=== PATIENT | male | born 1965 | race Two or more races ===

== ENCOUNTER 2023-05-13 12:53 | Inpatient (IN) | payer BC, OTHER ==
[~2023-05-13] VITALS: Ht 185.4 cm; Wt 101.5 kg
[2023-05-13] VITALS (18 sets, daily range): BP systolic 125–179; BP diastolic 59–116; PULSE 102–144; RESP 15–39; TEMP 96.7–96.9; O2SAT 97–100
[2023-05-13] MEDS ORDERED: DEXTROSE (50%) 50ML SYRG IV PRN ×2 (17:15→21:00)
[2023-05-13] MEDS ORDERED: INSULIN DRIP 100 UNIT/100ML 100 ML IV SCH (17:15)
[2023-05-13] MEDS ORDERED: ONDANSETRON HCL 4 MG/2 ML VIAL IV PRN (17:15)
[2023-05-13] MEDS ORDERED: NITROGLYCERIN 0.4 MG SL TAB SL PRN (17:15)
[2023-05-13] MEDS ORDERED: LABETALOL HCL 5 MG/ML 4ML SYRINGE IV PRN (17:15)
[2023-05-13] MEDS ORDERED: MORPHINE SULFATE INJ 2 MG/ml SYRG IV PRN ×2 (17:15)
[2023-05-13] MEDS ORDERED: ACETAMINOPHEN 325 MG TAB PO PRN (17:15)
[2023-05-13] MEDS ORDERED: cefTRIAXone 1GM/50ML D5W 50 ML IV ONE (18:30)
[2023-05-13 18:37] LABS: Urine Bacteria NONE SEEN /hpf (None Seen); Urine Blood 2+ /uL (Negative); Urine Clarity Clear (Clear); Urine Color Colorless (Yellow); Urine Protein, UAD 1+ (Negative); Urine Specific Gravity 1.022 (1.001-1.035); Urine Urobilinogen Normal (Negative); Urine WBC <1 /hpf (0 - 3)
[2023-05-13 18:43] LABS: Eosinophils # (auto) 0 10 ^3/uL (0-0.8); Hemoglobin 15.4 g/dL (13.5-17.5)
[2023-05-13 18:45] LABS: Basophils # (auto) 0 10 ^3/uL (0-0.2); Basophils % (auto) 0.1 % (0.0-2.0); Hematocrit 48.9 % (41.0-53.0); Lymphocytes # (auto) 1.2 10 ^3/uL (0.4-5.4); Lymphocytes % (auto) 5.4 % (10.0-50.0); Mean Corpuscular Hemoglobin 31.6 pg (28.0-32.0); Mean Corpuscular Hgb Conc. 31.5 g/dL (32.0-36.0); Mean Corpuscular Volume 100.5 fL (80.0-100.0); Monocytes # (auto) 2.9 10 ^3/uL (0-1.3); Monocytes % (auto) 12.6 % (0.0-12.0); Neutrophils # (auto) 18.6 10 ^3/uL (1.6-8.6); Neutrophils % (auto) 81.9 % (37.0-80.0); Red Blood Cells 4.87 10^6/uL (4.5-5.90); Red Cell Distribution Width 13.8 % (11.8-14.3); White Blood Cell 22.8 10^3/uL (4.4-10.8)
[2023-05-13] MEDS: SODIUM BICARBONATE 50ML VIAL 150 ML in SOD CHL 0.45% 1,000 ML IV SCH (18:45)
[2023-05-13] MEDS: ACCU-CHEK COMFORT CURVE STRIP VI SCH ×6 (18:49→23:59)
[2023-05-13 18:58] LABS: Chloride 107 mmol/L (98-107); Potassium 5.2 mmol/L (3.5-5.1); Sodium 137 mmol/L (136-145)
[2023-05-13 18:59] LABS: Anion Gap 20.00001 (5-15); Calcium 10.1 mg/dL (8.7-10.4)
[2023-05-13] MEDS ORDERED: SODIUM BICARBONATE 8.4 % INJ 50ML VIAL IV ONE (19:00)
[2023-05-13 19:04] LABS: BUN/Creatinine Ratio 22.3 (10.0-20.0); Blood Urea Nitrogen 35 mg/dL (9-23)
[2023-05-13 19:05] LABS: Magnesium 2.5 mg/dL (1.6-2.6)
[2023-05-13 19:15] LABS: Carbon Dioxide < 10 mmol/L (20-30); Glucose 566 mg/dL (74-106)
[2023-05-13] MEDS ORDERED: AMIODARONE HCL 200 MG TAB PO ONE (19:30)
[2023-05-13] MEDS ORDERED: PANTOPRAZOLE 40 MG/10 ML VIAL INJ IV ONE (19:30)
[2023-05-13] MEDS ORDERED: AMIODARONE 450mg/250ml AE 250 ML IV SCH (20:30)
[2023-05-13] MEDS: INSULIN DRIP 100 UNIT/100ML 100 ML IV SCH ×3 (20:54→23:55)
[2023-05-13] MEDS: PANTOPRAZOLE 40 MG/10 ML VIAL INJ IV SCH (21:19)
[2023-05-13] MEDS: SODIUM CHLOR 0.9% PF (SALINE LOCK) 10ML VIAL/SYR IV SCH (21:19)
[2023-05-13 22:36] LABS: Chloride 115 mmol/L (98-107); Potassium 4.4 mmol/L (3.5-5.1); Sodium 142 mmol/L (136-145)
[2023-05-13 22:38] LABS: Calcium 9.6 mg/dL (8.7-10.4)
[2023-05-13 22:43] LABS: BUN/Creatinine Ratio 20.1 (10.0-20.0); Blood Urea Nitrogen 27 mg/dL (9-23); Magnesium 2.3 mg/dL (1.6-2.6)
[2023-05-13 22:45] LABS: Phosphorus 1.3 mg/dL (2.4-5.1)
[2023-05-13 22:53] LABS: Base Excess -16.8 mmol/L (-2.0-2.0)
[2023-05-13 23:00] LABS: Glucose 390 mg/dL (74-106)
[2023-05-13] MEDS: SODIUM CHLORIDE 0.9% 1,000 ML IV SCH (23:00)
[2023-05-13 23:01] LABS: Carbon Dioxide < 10 mmol/L (20-30)
[2023-05-14] VITALS (47 sets, daily range): BP systolic 90–143; BP diastolic 50–82; PULSE 88–158; RESP 15–25; TEMP 98.1–98.7; O2SAT 93–100
[2023-05-14] MEDS: ACCU-CHEK COMFORT CURVE STRIP VI SCH ×12 (01:45→22:39)
[2023-05-14] MEDS ORDERED: AMIODARONE 450mg/250ml AE 250 ML IV SCH ×3 (02:30→14:45)
[2023-05-14 02:52] LABS: Alanine Aminotransferase 11 U/L (7-40); Albumin 4.1 g/dL (3.2-4.8); Alkaline Phosphatase 83 U/L (46-116); Anion Gap 15 (5-15); Aspartate Aminotransferase 17 U/L (13-40); BUN/Creatinine Ratio 28.8 (10.0-20.0); Blood Urea Nitrogen 34 mg/dL (9-23); Calcium 9.4 mg/dL (8.5-10.1); Carbon Dioxide 14 mmol/L (20-30); Chloride 118 mmol/L (98-107); Potassium 3.6 mmol/L (3.5-5.1)
[2023-05-14 02:53] LABS: Bilirubin, Total 0.3 mg/dL (0.2-1.0); Phosphorus 0.7 mg/dL (2.4-5.1); Total Protein 6.5 g/dL (5.7-8.2)
[2023-05-14 03:10] LABS: Glucose 231 mg/dL (74-106); Sodium 147 mmol/L (136-145)
[2023-05-14 03:56] LABS: Anion Gap 14 (5-15); Carbon Dioxide 15 mmol/L (20-30); Chloride 118 mmol/L (98-107); Potassium 3.5 mmol/L (3.5-5.1); Sodium 147 mmol/L (136-145)
[2023-05-14 03:57] LABS: Calcium 9.3 mg/dL (8.5-10.1)
[2023-05-14 04:00] LABS: Basophils # (auto) 0.1 10 ^3/uL (0-0.2); Basophils % (auto) 0.4 % (0.0-2.0); Eosinophils # (auto) 0 10 ^3/uL (0-0.8); Hematocrit 41.4 % (41.0-53.0); Hemoglobin 13.5 g/dL (13.5-17.5); Lymphocytes # (auto) 0.7 10 ^3/uL (0.4-5.4); Lymphocytes % (auto) 4.2 % (10.0-50.0); Mean Corpuscular Hemoglobin 30.7 pg (28.0-32.0); Mean Corpuscular Hgb Conc. 32.5 g/dL (32.0-36.0); Mean Corpuscular Volume 94.4 fL (80.0-100.0); Monocytes # (auto) 1.8 10 ^3/uL (0-1.3); Monocytes % (auto) 11.1 % (0.0-12.0); Neutrophils # (auto) 13.5 10 ^3/uL (1.6-8.6); Neutrophils % (auto) 84.3 % (37.0-80.0); Red Blood Cells 4.39 10^6/uL (4.5-5.90); Red Cell Distribution Width 13.1 % (11.8-14.3)
[2023-05-14 04:02] LABS: BUN/Creatinine Ratio 28.8 (10.0-20.0); Blood Urea Nitrogen 32 mg/dL (9-23); Glucose 208 mg/dL (74-106)
[2023-05-14 04:04] LABS: Phosphorus 0.7 mg/dL (2.4-5.1)
[2023-05-14] MEDS: INSULIN DRIP 100 UNIT/100ML 100 ML IV SCH ×2 (04:36→09:22)
[2023-05-14 04:43] LABS: Magnesium 2.1 mg/dL (1.6-2.6)
[2023-05-14] MEDS: SODIUM CHLORIDE 0.9% 1,000 ML IV SCH ×3 (05:56→16:40)
[2023-05-14] MEDS: SODIUM CHLOR 0.9% PF (SALINE LOCK) 10ML VIAL/SYR IV SCH ×4 (05:57→21:50)
[2023-05-14] MEDS: SODIUM BICARBONATE 50ML VIAL 150 ML in SOD CHL 0.45% 1,000 ML IV SCH ×2 (06:01→16:42)
[2023-05-14] MEDS ORDERED: SODIUM BICARBONATE 8.4% INJ 50ML SYRINGE ONE (06:12)
[2023-05-14] MEDS ORDERED: AMIODARONE HCL (50 MG/ ML) 3 ML VIAL IV ONE (06:12)
[2023-05-14] MEDS ORDERED: AMIODARONE BOLUS KIT 100 ML IV ONE ×2 (06:15→11:00)
[2023-05-14 07:59] LABS: Base Excess -9.7 mmol/L (-2.0-2.0)
[2023-05-14] MEDS: cefTRIAXone 1GM/50ML D5W 50 ML IV SCH (08:23)
[2023-05-14] MEDS: PANTOPRAZOLE 40 MG/10 ML VIAL INJ IV SCH ×2 (08:23→21:50)
[2023-05-14] MEDS: dilTIAZem 125mg/125ml BAG KIT 125 ML IV SCH ×2 (09:23→19:36)
[2023-05-14] MEDS ORDERED: PANTOPRAZOLE 40 MG/10 ML VIAL INJ IV SCH (10:00)
[2023-05-14] MEDS ORDERED: AMIODARONE HCL 200 MG TAB PO SCH (10:00)
[2023-05-14 10:53] LABS: INR 0.98 (0.9-1.15); Partial Thromboplastin Time 28.5 SEC (24.5-34.5); Prothrombin Time 10.3 sec (9.3-11.8)
[2023-05-14] MEDS: MAGNESIUM SULFATE 1GM/100ML 100 ML IV SCH ×4 (10:57→13:35)
[2023-05-14 10:58] LABS: Albumin 3.8 g/dL (3.2-4.8); Alkaline Phosphatase 81 U/L (46-116); Anion Gap 11 (5-15); Aspartate Aminotransferase 17 U/L (13-40); BUN/Creatinine Ratio 26.7 (10.0-20.0); Bilirubin, Total 0.3 mg/dL (0.2-1.0); Blood Urea Nitrogen 27 mg/dL (9-23); Calcium 8.9 mg/dL (8.7-10.4); Carbon Dioxide 17 mmol/L (20-30); Chloride 116 mmol/L (98-107); Glucose 227 mg/dL (74-106); Potassium 3.2 mmol/L (3.5-5.1); Sodium 144 mmol/L (136-145); Total Protein 5.9 g/dL (5.7-8.2)
[2023-05-14 11:01] LABS: Alanine Aminotransferase 9 U/L (7-40)
[2023-05-14] MEDS ORDERED: NEUTRA-PHOS TABLET PO ONE (11:15)
[2023-05-14] MEDS ORDERED: POTASSIUM EFFERVESENT TAB 25 MEQ PO ONE (11:15)
[2023-05-14] MEDS ORDERED: LIDOCAINE 1% (LOCAL ANESTH.) PF 5ml SDV ID ONE (16:45)
[2023-05-14 16:54] LABS: Base Excess -3.5 mmol/L (-2.0-2.0)
[2023-05-14 17:16] LABS: Chloride 112 mmol/L (98-107); Potassium 3.2 mmol/L (3.5-5.1); Sodium 144 mmol/L (136-145)
[2023-05-14 17:17] LABS: Anion Gap 9 (5-15); Calcium 8.4 mg/dL (8.7-10.4); Carbon Dioxide 23 mmol/L (20-30)
[2023-05-14 17:22] LABS: BUN/Creatinine Ratio 35.3 (10.0-20.0); Blood Urea Nitrogen 30 mg/dL (9-23); Glucose 191 mg/dL (74-106)
[2023-05-14] MEDS ORDERED: DEXTROSE (50%) 50ML SYRG IV PRN ×2 (18:00→22:30)
[2023-05-14] MEDS ORDERED: POTASSIUM EFFERVESENT TAB 25 MEQ GT ONE (18:00)
[2023-05-14] MEDS ORDERED: fentaNYL CITRATE 100 MCG/2 ML VL IV ONE (19:45)
[2023-05-14] MEDS ORDERED: ENOXAPARIN SOD 100 MG/1 ML SYRINGE SC ONE ×2 (19:45→19:49)
[2023-05-14] MEDS ORDERED: MIDAZOLAM HCL 2MG/2ML 2ml VIAL (1mg/ml) IM ONE (19:45)
[2023-05-14] MEDS ORDERED: fentaNYL CITRATE 100 MCG/2 ML VL ONE (19:48)
[2023-05-14] MEDS ORDERED: MIDAZOLAM HCL 2MG/2ML 2ml VIAL (1mg/ml) ONE (19:49)
[2023-05-14] MEDS ORDERED: NALOXONE HCL 0.4 MG/ML VIAL ONE (20:50)
[2023-05-14] MEDS: AMIODARONE HCL 200 MG TAB PO SCH (21:51)
[2023-05-14] MEDS ORDERED: ACCU-CHEK COMFORT CURVE STRIP VI SCH (22:00)
[2023-05-14] MEDS ORDERED: InsuLIN REG 1unit/0.01ml Soln (100units/ml) SC SCH (22:00)
[2023-05-14] MEDS ORDERED: LABETALOL HCL 5 MG/ML 4ML SYRINGE IV PRN (22:30)
[2023-05-14] MEDS: InsuLIN REG 1unit/0.01ml Soln (100units/ml) SC SCH (22:39)
[2023-05-15] VITALS (22 sets, daily range): BP systolic 102–157; BP diastolic 55–99; PULSE 77–152; RESP 14–26; TEMP 97.5–98.9; O2SAT 92–100
[2023-05-15] MEDS: LABETALOL HCL 5 MG/ML 4ML SYRINGE IV PRN ×2 (01:26→06:01)
[2023-05-15] MEDS: ACCU-CHEK COMFORT CURVE STRIP VI SCH ×5 (04:00→20:00)
[2023-05-15] MEDS: SODIUM CHLORIDE 0.9% 1,000 ML IV SCH ×3 (04:54→17:00)
[2023-05-15] MEDS: InsuLIN REG 1unit/0.01ml Soln (100units/ml) SC SCH ×5 (05:04→22:58)
[2023-05-15] MEDS: dilTIAZem 125mg/125ml BAG KIT 125 ML IV SCH (05:07)
[2023-05-15] MEDS: SODIUM CHLOR 0.9% PF (SALINE LOCK) 10ML VIAL/SYR IV SCH ×5 (06:00→22:00)
[2023-05-15 07:01] LABS: Basophils # (auto) 0 10 ^3/uL (0-0.2); Basophils % (auto) 0.2 % (0.0-2.0); Eosinophils # (auto) 0 10 ^3/uL (0-0.8); Hematocrit 36.2 % (41.0-53.0); Lymphocytes # (auto) 0.7 10 ^3/uL (0.4-5.4); Lymphocytes % (auto) 6.1 % (10.0-50.0); Mean Corpuscular Hgb Conc. 33.2 g/dL (32.0-36.0); Mean Corpuscular Volume 93.3 fL (80.0-100.0); Monocytes # (auto) 0.9 10 ^3/uL (0-1.3); Monocytes % (auto) 8.7 % (0.0-12.0); Neutrophils # (auto) 9.2 10 ^3/uL (1.6-8.6); Red Blood Cells 3.88 10^6/uL (4.5-5.90); Red Cell Distribution Width 13.5 % (11.8-14.3); White Blood Cell 10.8 10^3/uL (4.4-10.8)
[2023-05-15 07:14] LABS: Alanine Aminotransferase 15 U/L (7-40); Albumin 3.3 g/dL (3.2-4.8); Alkaline Phosphatase 129 U/L (46-116); Anion Gap 12 (5-15); Aspartate Aminotransferase 15 U/L (13-40); BUN/Creatinine Ratio 33.7 (10.0-20.0); Blood Urea Nitrogen 28 mg/dL (9-23); Calcium 8.1 mg/dL (8.5-10.1); Carbon Dioxide 18 mmol/L (20-30); Chloride 112 mmol/L (98-107); Potassium 3.8 mmol/L (3.5-5.1); Sodium 142 mmol/L (136-145)
[2023-05-15 07:15] LABS: Bilirubin, Total 0.4 mg/dL (0.2-1.0); Total Protein 5.2 g/dL (5.7-8.2)
[2023-05-15 07:17] LABS: Glucose 323 mg/dL (74-106)
[2023-05-15] MEDS: PANTOPRAZOLE 40 MG/10 ML VIAL INJ IV SCH ×2 (08:27→22:47)
[2023-05-15] MEDS: cefTRIAXone 1GM/50ML D5W 50 ML IV SCH (08:27)
[2023-05-15] MEDS: AMIODARONE HCL 200 MG TAB PO SCH ×2 (08:27→22:49)
[2023-05-15] MEDS: APIXABAN 5 MG TAB PO SCH ×2 (08:31→22:49)
[2023-05-15 08:45] LABS: Magnesium 2.2 mg/dL (1.6-2.6)
[2023-05-15] MEDS ORDERED: dilTIAZem 120MG ER CAP PO SCH (10:00)
[2023-05-15] MEDS ORDERED: AMIODARONE HCL 200 MG TAB PO SCH (10:00)
[2023-05-15] MEDS ORDERED: DIGOXIN (250MCG/ML) 2 ML AMPULE IV ONE (11:15)
[2023-05-15] MEDS: METOPROLOL TARTRATE 25 MG TAB PO SCH ×2 (11:26→22:50)
[2023-05-15] MEDS: INSULIN LANTUS (GLARGINE) 1 /0.01ml (100units/ml) SC SCH (22:58)
[2023-05-16] VITALS (12 sets, daily range): BP systolic 122–159; BP diastolic 54–94; PULSE 82–114; RESP 15–25; TEMP 97.5–98.4; O2SAT 94–100
[2023-05-16] MEDS: InsuLIN REG 1unit/0.01ml Soln (100units/ml) SC SCH ×6 (01:23→20:45)
[2023-05-16] MEDS: SODIUM CHLORIDE 0.9% 1,000 ML IV SCH ×3 (02:30→18:00)
[2023-05-16] MEDS: ACCU-CHEK COMFORT CURVE STRIP VI SCH ×6 (04:00→20:41)
[2023-05-16] MEDS: METOPROLOL TARTRATE 25 MG TAB PO SCH ×3 (06:00→20:54)
[2023-05-16 06:28] LABS: Basophils # (auto) 0 10 ^3/uL (0-0.2); Basophils % (auto) 0.3 % (0.0-2.0); Eosinophils # (auto) 0 10 ^3/uL (0-0.8); Hematocrit 37.8 % (41.0-53.0); Hemoglobin 12.4 g/dL (13.5-17.5); Lymphocytes # (auto) 1.5 10 ^3/uL (0.4-5.4); Lymphocytes % (auto) 16.3 % (10.0-50.0); Mean Corpuscular Hemoglobin 30.4 pg (28.0-32.0); Mean Corpuscular Hgb Conc. 32.8 g/dL (32.0-36.0); Mean Corpuscular Volume 92.7 fL (80.0-100.0); Monocytes # (auto) 1.1 10 ^3/uL (0-1.3); Monocytes % (auto) 11.8 % (0.0-12.0); Neutrophils # (auto) 6.5 10 ^3/uL (1.6-8.6); Neutrophils % (auto) 71.6 % (37.0-80.0); Nucleated Red Blood Cells % 0.1 %; Red Blood Cells 4.07 10^6/uL (4.5-5.90); Red Cell Distribution Width 13.2 % (11.8-14.3)
[2023-05-16] MEDS: SODIUM CHLOR 0.9% PF (SALINE LOCK) 10ML VIAL/SYR IV SCH ×5 (06:28→20:55)
[2023-05-16 06:52] LABS: Alanine Aminotransferase 10 U/L (7-40); Alkaline Phosphatase 122 U/L (46-116); Anion Gap 10 (5-15); Aspartate Aminotransferase 12 U/L (13-40); BUN/Creatinine Ratio 39.1 (10.0-20.0); Bilirubin, Total 0.5 mg/dL (0.2-1.0); Blood Urea Nitrogen 25 mg/dL (9-23); Carbon Dioxide 24 mmol/L (20-30); Chloride 110 mmol/L (98-107); Magnesium 2.1 mg/dL (1.6-2.6); Potassium 3.2 mmol/L (3.5-5.1); Sodium 144 mmol/L (136-145); Total Protein 4.6 g/dL (5.7-8.2)
[2023-05-16 06:57] LABS: Glucose 188 mg/dL (74-106)
[2023-05-16] MEDS: INSULIN LANTUS (GLARGINE) 1 /0.01ml (100units/ml) SC SCH ×2 (07:00→20:46)
[2023-05-16] MEDS: cefTRIAXone 1GM/50ML D5W 50 ML IV SCH (08:54)
[2023-05-16] MEDS: PANTOPRAZOLE 40 MG/10 ML VIAL INJ IV SCH ×2 (09:38→20:54)
[2023-05-16] MEDS: AMIODARONE HCL 200 MG TAB PO SCH ×2 (09:39→20:53)
[2023-05-16] MEDS: APIXABAN 5 MG TAB PO SCH ×2 (09:40→20:54)
[2023-05-16] MEDS: dilTIAZem 120MG ER CAP PO SCH (09:40)
[2023-05-16] MEDS: DIGOXIN 0.25 MG TAB PO SCH (09:40)
[2023-05-16] MEDS ORDERED: POTASSIUM EFFERVESENT TAB 25 MEQ PO ONE (09:45)
[2023-05-16] MEDS ORDERED: POTASSIUM CHL 20 Meq TABLET PO ONE (10:30)
[2023-05-16 11:30] LABS: LDL Cholesterol 111 mg/dL (< 100); Triglycerides 120 mg/dL (< 150)
[2023-05-16 11:31] LABS: Cholesterol 162 mg/dL (< 200)
[2023-05-16 11:32] LABS: HDL Cholesterol 30 mg/dL (40-59)
[2023-05-17] VITALS (18 sets, daily range): BP systolic 102–167; BP diastolic 51–77; PULSE 29–117; RESP 9–25; TEMP 97.5–98.2; O2SAT 94–100
[2023-05-17] MEDS: SODIUM CHLORIDE 0.9% 1,000 ML IV SCH ×2 (00:38→07:40)
[2023-05-17] MEDS: InsuLIN REG 1unit/0.01ml Soln (100units/ml) SC SCH ×6 (04:00→20:15)
[2023-05-17] MEDS: ACCU-CHEK COMFORT CURVE STRIP VI SCH ×6 (04:00→20:13)
[2023-05-17 05:43] LABS: Basophils # (auto) 0 10 ^3/uL (0-0.2); Basophils % (auto) 0.2 % (0.0-2.0); Eosinophils # (auto) 0 10 ^3/uL (0-0.8); Eosinophils % (auto) 0.3 % (0.0-7.0); Hematocrit 38.9 % (41.0-53.0); Hemoglobin 12.9 g/dL (13.5-17.5); Lymphocytes # (auto) 1.4 10 ^3/uL (0.4-5.4); Lymphocytes % (auto) 18.6 % (10.0-50.0); Mean Corpuscular Hemoglobin 30.5 pg (28.0-32.0); Mean Corpuscular Hgb Conc. 33.2 g/dL (32.0-36.0); Mean Corpuscular Volume 91.7 fL (80.0-100.0); Monocytes # (auto) 0.8 10 ^3/uL (0-1.3); Monocytes % (auto) 10.2 % (0.0-12.0); Neutrophils # (auto) 5.2 10 ^3/uL (1.6-8.6); Neutrophils % (auto) 70.7 % (37.0-80.0); Red Blood Cells 4.25 10^6/uL (4.5-5.90); Red Cell Distribution Width 12.9 % (11.8-14.3); White Blood Cell 7.4 10^3/uL (4.4-10.8)
[2023-05-17 05:52] LABS: Anion Gap 6 (5-15); Calcium 7.7 mg/dL (8.7-10.4); Carbon Dioxide 27 mmol/L (20-30); Chloride 110 mmol/L (98-107); Potassium 3.3 mmol/L (3.5-5.1); Sodium 143 mmol/L (136-145)
[2023-05-17 05:57] LABS: Glucose 157 mg/dL (74-106)
[2023-05-17 05:58] LABS: BUN/Creatinine Ratio 23.6 (10.0-20.0); Blood Urea Nitrogen 13 mg/dL (9-23)
[2023-05-17] MEDS: SODIUM CHLOR 0.9% PF (SALINE LOCK) 10ML VIAL/SYR IV SCH ×3 (06:53→22:28)
[2023-05-17] MEDS: METOPROLOL TARTRATE 25 MG TAB PO SCH ×3 (06:53→22:28)
[2023-05-17] MEDS: INSULIN LANTUS (GLARGINE) 1 /0.01ml (100units/ml) SC SCH (06:55)
[2023-05-17] MEDS: cefTRIAXone 1GM/50ML D5W 50 ML IV SCH (09:21)
[2023-05-17] MEDS: APIXABAN 5 MG TAB PO SCH ×2 (09:22→22:28)
[2023-05-17] MEDS: PANTOPRAZOLE 40 MG/10 ML VIAL INJ IV SCH ×2 (09:22→22:27)
[2023-05-17] MEDS: dilTIAZem 120MG ER CAP PO SCH (09:23)
[2023-05-17] MEDS: AMIODARONE HCL 200 MG TAB PO SCH ×2 (09:24→22:28)
[2023-05-17] MEDS: DIGOXIN 0.25 MG TAB PO SCH (09:24)
[2023-05-17] MEDS ORDERED: POTASSIUM EFFERVESENT TAB 25 MEQ PO ONE (09:30)
[2023-05-17] MEDS ORDERED: LABETALOL HCL 5 MG/ML 4ML SYRINGE IV PRN (11:00)
[2023-05-17] MEDS ORDERED: INSULIN 70/30 1unit/0.01ml Susp (100units/ml) SC ONE (12:00)
[2023-05-17] MEDS: SUCRALFATE 1 GM/10 ML ORAL SUSP PO SCH ×3 (12:42→22:27)
[2023-05-17] MEDS: INSULIN 70/30 1unit/0.01ml Susp (100units/ml) SC SCH (18:45)
[2023-05-18] VITALS (8 sets, daily range): BP systolic 132–157; BP diastolic 66–87; PULSE 69–144; RESP 16–22; TEMP 97.8–98.6; O2SAT 94–99
[2023-05-18] MEDS: InsuLIN REG 1unit/0.01ml Soln (100units/ml) SC SCH ×6 (04:00→20:00)
[2023-05-18] MEDS: ACCU-CHEK COMFORT CURVE STRIP VI SCH ×6 (06:21→21:53)
[2023-05-18] MEDS: METOPROLOL TARTRATE 25 MG TAB PO SCH ×3 (06:21→21:48)
[2023-05-18] MEDS: SUCRALFATE 1 GM/10 ML ORAL SUSP PO SCH ×4 (06:21→21:49)
[2023-05-18 06:29] LABS: Alanine Aminotransferase 11 U/L (7-40); Alkaline Phosphatase 84 U/L (46-116); Anion Gap 6 (5-15); BUN/Creatinine Ratio 20.7 (10.0-20.0); Blood Urea Nitrogen 12 mg/dL (9-23); Calcium 8.4 mg/dL (8.5-10.1); Carbon Dioxide 31 mmol/L (20-30); Chloride 106 mmol/L (98-107); Glucose 108 mg/dL (74-106); Potassium 3.1 mmol/L (3.5-5.1); Sodium 143 mmol/L (136-145)
[2023-05-18 06:30] LABS: Albumin 3.1 g/dL (3.2-4.8); Aspartate Aminotransferase 16 U/L (13-40); Bilirubin, Total 0.4 mg/dL (0.2-1.0); Total Protein 4.8 g/dL (5.7-8.2)
[2023-05-18] MEDS: cefTRIAXone 1GM/50ML D5W 50 ML IV SCH (08:18)
[2023-05-18] MEDS: INSULIN 70/30 1unit/0.01ml Susp (100units/ml) SC SCH ×2 (08:20→17:56)
[2023-05-18] MEDS: PANTOPRAZOLE 40 MG/10 ML VIAL INJ IV SCH ×2 (10:06→21:50)
[2023-05-18] MEDS: SODIUM CHLOR 0.9% PF (SALINE LOCK) 10ML VIAL/SYR IV SCH ×2 (10:06→21:49)
[2023-05-18] MEDS: dilTIAZem 120MG ER CAP PO SCH (10:07)
[2023-05-18] MEDS: APIXABAN 5 MG TAB PO SCH ×2 (10:07→21:58)
[2023-05-18] MEDS: DIGOXIN 0.25 MG TAB PO SCH (10:08)
[2023-05-18] MEDS ORDERED: POTASSIUM EFFERVESENT TAB 25 MEQ PO ONE (10:30)
[2023-05-18] MEDS ORDERED: DILT-102 PO (12:04)
[2023-05-18] MEDS ORDERED: DIGO0.25 PO (12:04)
[2023-05-18] MEDS ORDERED: METF-372 PO (12:04)
[2023-05-18] MEDS ORDERED: APIX5TAB PO (12:04)
[2023-05-18] MEDS ORDERED: AMIO200T13 PO (12:04)
[2023-05-18] MEDS ORDERED: INS7030I SC (12:04)
[2023-05-18] MEDS ORDERED: PANT40TA2 PO (12:04)
[2023-05-18] MEDS ORDERED: MET25T PO (12:04)
[2023-05-18] MEDS ORDERED: POTASSIUM CHL 20 Meq TABLET PO ONE (18:45)
[2023-05-18] MEDS: AMIODARONE HCL 200 MG TAB PO SCH (22:09)
[2023-05-19] MEDS: ACCU-CHEK COMFORT CURVE STRIP VI SCH ×5 (00:33→16:41)
[2023-05-19] MEDS: InsuLIN REG 1unit/0.01ml Soln (100units/ml) SC SCH ×5 (04:34→16:00)
[2023-05-19 05:00] VITALS: BP 156/81; PULSE 71; RESP 16; TEMP 98.4; O2SAT 91
[2023-05-19] MEDS: SUCRALFATE 1 GM/10 ML ORAL SUSP PO SCH ×3 (06:30→16:41)
[2023-05-19] MEDS: METOPROLOL TARTRATE 25 MG TAB PO SCH ×2 (06:32→14:00)
[2023-05-19 06:53] LABS: Alanine Aminotransferase 12 U/L (7-40); Alkaline Phosphatase 84 U/L (46-116); Anion Gap 5 (5-15); Blood Urea Nitrogen 9 mg/dL (9-23); Calcium 8.4 mg/dL (8.7-10.4); Carbon Dioxide 30 mmol/L (20-30); Chloride 105 mmol/L (98-107); Magnesium 1.8 mg/dL (1.6-2.6); Potassium 3.5 mmol/L (3.5-5.1); Sodium 140 mmol/L (136-145)
[2023-05-19 06:54] LABS: Albumin 3.2 g/dL (3.2-4.8); Aspartate Aminotransferase 16 U/L (13-40); Bilirubin, Total 0.4 mg/dL (0.2-1.0)
[2023-05-19 07:02] LABS: Glucose 213 mg/dL (74-106)
[2023-05-19 08:00] VITALS: PULSE 68; PULSE 70; RESP 19; O2SAT 95
[2023-05-19] MEDS: INSULIN 70/30 1unit/0.01ml Susp (100units/ml) SC SCH (08:39)
[2023-05-19 09:00] VITALS: BP 154/72; PULSE 68; RESP 19; TEMP 97.7; O2SAT 95
[2023-05-19] MEDS: APIXABAN 5 MG TAB PO SCH (10:00)
[2023-05-19] MEDS: AMIODARONE HCL 200 MG TAB PO SCH (10:36)
[2023-05-19] MEDS: DIGOXIN 0.25 MG TAB PO SCH (10:37)
[2023-05-19] MEDS: SODIUM CHLOR 0.9% PF (SALINE LOCK) 10ML VIAL/SYR IV SCH (10:38)
[2023-05-19] MEDS: PANTOPRAZOLE 40 MG/10 ML VIAL INJ IV SCH (10:38)
[2023-05-19] MEDS: dilTIAZem 120MG ER CAP PO SCH (10:43)
[2023-05-19 13:00] VITALS: BP 149/67; PULSE 75; RESP 18; TEMP 97.5; O2SAT 95
[2023-05-19] MEDS ORDERED: ERGO1CAP23 PO (13:18)
[2023-05-19 16:43] VITALS: BP 149/67; PULSE 75; RESP 18; TEMP 97.5; O2SAT 95
== END 2023-05-19 17:24 | disposition home or self-care (01) | DRG 871 ==
LOC: ICU WEST 16:40 → UNDOADMIN 16:40 → ICU WEST 17:18 → DOU IN ICU 05-14 23:42 → TELE-CENTR 05-17 17:00
PROVIDERS: ADMIT Internal Medicine; ATTEND Internal Medicine
PROC: 02HV33Z Insertion of Infusion Device into Superior Vena Cava, Percutaneous Approach (ICD-10-PCS; principal; 2023-05-14)
PROC: B548ZZA Ultrasonography of Superior Vena Cava, Guidance (ICD-10-PCS; 2023-05-14)
PROC: 5A2204Z Restoration of Cardiac Rhythm, Single (ICD-10-PCS; 2023-05-14)
DX: A41.9 Sepsis, unspecified organism (principal); E11.10 Type 2 diabetes mellitus with ketoacidosis without coma; I50.23 Acute on chronic systolic (congestive) heart failure; I21.A1 Myocardial infarction type 2; K92.0 Hematemesis; I48.92 Unspecified atrial flutter; I48.91 Unspecified atrial fibrillation; E11.42 Type 2 diabetes mellitus with diabetic polyneuropathy; M19.011 Primary osteoarthritis, right shoulder; M19.012 Primary osteoarthritis, left shoulder; N40.0 Benign prostatic hyperplasia without lower urinary tract symptoms; Z79.01 Long term (current) use of anticoagulants; Z79.899 Other long term (current) drug therapy; Z91.148 Patient's other noncompliance with medication regimen for other reason; Z95.1 Presence of aortocoronary bypass graft; Z95.3 Presence of xenogenic heart valve
CPT/HCPCS: 36415; 36569; 36600; 71045; 80048; 80053; 80061; 80162; 81001; 82010; 82306; 82805; 82962; 83036; 83735; 83930; 84100; 84439; 84443; 84484; 85025; 85610; 85730; 87040; 87081; 87086; 92960; 93005; 93306; 97110; 97116; 97163; 97530; C9113; G0378; J0696; J1815; J2250; J2405; J3490; J7060